=== PATIENT | male | born 1980 | race Caucasian/White ===

== ENCOUNTER → 2024-01-26 | Outpatient (CLI) | payer OTHER ==
--- NOTE | 2024-01-26 15:19 | CT ---
EXAMINATION TYPE: CT urogram wo/w con CT DLP: 4077 mGycm, Automated exposure control for dose reduction was used. DATE OF EXAM: 01/26/2024 10:48 AM COMPARISON: None CLINICAL INDICATION:Male, 43 years old with history of R31.1 MICRO HEMATURIA; PHH, hematuria TECHNIQUE: Urogram of the abdomen and pelvis was performed before and after the administration of 100 cc of IV c ontrast Isovue 300 contrast. Delayed imaging was performed. Coronal and sagittal reformats were perfo rmed. One or more CT dose reduction strategies were utilized during this examination. FINDINGS: GENITOURINARY: RIGHT KIDNEY AND URETER: There are 3 nonobstructive right lower pole renal calculi largest measuring up to 7 mm. No hydronephrosis or hydroureter. No renal mass or other lesions. No urothelial lesions: no filling defect, dilation, stricture or wall thickening. LEFT KIDNEY AND URETER: No calculi. No hydronephrosis or hydroureter. No renal mass or other lesions. No urothelial lesions: no filling defect, dilation, stricture or wall thickening. URINARY BLADDER: Moderately well distended. Normal, no calculi, mass or other lesions. REPRODUCTIVE: Unremarkable. ABDOMEN LIVER: Diffusely hypoattenuating, consistent with hepatic steatosis. No focal lesion identified. GALLBLADDER AND BILE DUCTS: Unremarkable PANCREAS: Unremarkable. SPLEEN: Unremarkable. ADRENAL GLANDS: Unremarkable. STOMACH AND BOWEL: Unremarkable. The appendix is within normal limits. No diverticulosis. No evidence of bowel obstruction. PERITONEUM: No evidence of pneumoperitoneum, free fluid, or adenopathy. VASCULATURE: No aortic aneurysm. Few pelvic phleboliths. MUSCULOSKELETAL: No acute osseous abnormalities. 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 SOFT TISSUE/ABDOMINAL WALL: Small fat filled umbilical hernia. LOWER CHEST: No significant findings. IMPRESSION: 1. No evidence of renal/urothelial neoplasm. 2. Nonobstructive right renal calculi. [facility], , 01/26/2024 3:17 PM
== END | disposition home or self-care (01) ==
LOC: RADCTMAIN 09:29
PROVIDERS: ATTEND Urology
CPT/HCPCS: 74178; 74400